=== PATIENT | male | born 1990 | race Caucasian/White ===

== ENCOUNTER 2022-12-25 22:26 | Emergency (ER) | payer OTHER ==
[~2022-12-25] VITALS: Ht 167.6 cm; Wt 103.0 kg
[2022-12-25 22:31] VITALS: O2SAT 97
[2022-12-25 22:55] VITALS: TEMP 98.4
[2022-12-26] MEDS ORDERED: KETAMINE HCL 50 MG/ML 10ML IV ONE
[2022-12-26] MEDS ORDERED: PROPOFOL 200MG/20ML VIAL IV ONE
[2022-12-26 01:05] VITALS: BP 143/77; PULSE 65; RESP 26
[2022-12-26] MEDS ORDERED: MORPHINE SULFATE 4 MG/ML CPJ (NOT FOR IM USE) IV ONE (02:15)
== END 2022-12-26 03:10 | disposition home or self-care (01) ==
LOC: ER 22:26
DX: S43.004A Unspecified dislocation of right shoulder joint, initial encounter (principal); X58.XXXA Exposure to other specified factors, initial encounter; Y93.89 Activity, other specified; Y92.89 Other specified places as the place of occurrence of the external cause; Y99.8 Other external cause status
CPT/HCPCS: 73030; 23650; 99152; 99285; 73020; Z7610 ×3; J3490; J2704